=== PATIENT | male | born 1985 | race Caucasian/White ===

== ENCOUNTER 2017-05-22 22:10 | Emergency (ER) | payer OTHER ==
[2017-05-23] MEDS ORDERED: REGLAN PO ONE (00:24)
[2017-05-23] MEDS ORDERED: BENADRYL IV ONE (00:24)
[2017-05-23] MEDS ORDERED: TYLENOL PO ONE (00:25)
[2017-05-23] MEDS ORDERED: REGLAN IV ONE (00:45)
--- NOTE | 2017-05-23 00:45 | Emergency Department Report ---
ED Headache HPI - General Chief Complaint: Headache Stated Complaint: HEADACHE Time Seen by Provider: 05/23/17 00:15 - History of Present Illness Initial Comments: 32-year-old male past medical history sinus headaches presents with complaint of approximately 1 month of waxing and waning anterior frontal headache. Patient is awake alert and oriented 3 states headache is currently a 5 out of 10. Denies upper or lower extremity paresthesias. States his sinuses feel congested. Denies any significant sinus discharge, denies earache, denies sore throat. Denies photo or phonophobia. Denies neck rigidity. Denies fevers or chills. Patient fully lucid and ambulatory without assistance. Accompanied by at bedside. Denies any head trauma Timing/Duration: episodic, waxing and waning Quality: severe Head Injury Location: frontal Recent Head Trauma: no recent headache/trauma Associated Symptoms: denies symptoms Allergies/Adverse Reactions: Allergies No Known Allergies Allergy (Unverified 05/22/17 22:50) Home Medications: Ambulatory Orders Amoxicillin/K Clav Tab [Augmentin 875 mg] 1 tab PO Q12HR #14 tab 05/23/17 Fluticasone [Flonase] 1 spray NS QDAY PRN #1 bottle 05/23/17 Loratadine [Claritin] 10 mg PO DAILY PRN #30 tablet 05/23/17 Naproxen 500 mg PO BID PRN #30 tablet 05/23/17 ED Review of Systems ROS: Stated complaint: HEADACHE Other details as noted in HPI Constitutional: denies: chills, fever Eyes: denies: eye pain, eye discharge, vision change ENT: as per HPI. denies: ear pain, throat pain Respiratory: denies: cough, shortness of breath, wheezing Cardiovascular: denies: chest pain, palpitations Endocrine: no symptoms reported Gastrointestinal: denies: abdominal pain, nausea, diarrhea Genitourinary: denies: urgency, dysuria Musculoskeletal: denies: back pain, joint swelling, arthralgia Skin: denies: rash, lesions Neurological: headache. denies: weakness, paresthesias Psychiatric: denies: anxiety, depression Hematological/Lymphatic: denies: easy bleeding, easy bruising ED Past Medical Hx - Past Medical History Previous Medical History?: No - Surgical History Past Surgical History?: No - Social History Smoking Status: Current Some Day Smoker Substance Use Type: Alcohol - Medications Home Medications: Home Medications Medication Instructions Recorded Confirmed Last Taken Type Amoxicillin/K Clav Tab [Augmentin 1 tab PO Q12HR #14 tab 05/23/17 Unknown Rx 875 mg] Fluticasone [Flonase] 1 spray NS QDAY PRN #1 bottle 05/23/17 Unknown Rx Loratadine [Claritin] 10 mg PO DAILY PRN #30 tablet 05/23/17 Unknown Rx Naproxen 500 mg PO BID PRN #30 tablet 05/23/17 Unknown Rx ED Physical Exam - General Limitations: No Limitations General appearance: alert, in no apparent distress - Head Head exam: Present: atraumatic, normocephalic - Eye Eye exam: Present: normal appearance, PERRL, EOMI - ENT ENT exam: Present: mucous membranes moist - Neck Neck exam: Present: normal inspection, full ROM (neck flexion and extension intact) - Respiratory Respiratory exam: Present: normal lung sounds bilaterally. Absent: respiratory distress - Cardiovascular Cardiovascular Exam: Present: regular rate, normal rhythm. Absent: systolic murmur, diastolic murmur, rubs, gallop - GI/Abdominal GI/Abdominal exam: Present: soft, normal bowel sounds - Rectal Rectal exam: Present: deferred - Extremities Exam Extremities exam: Present: normal inspection - Back Exam Back exam: Present: normal inspection - Neurological Exam Neurological exam: Present: alert, oriented X3, CN II-XII intact, normal gait - Expanded Neurological Exam Expanded Patient oriented to: Present: person, place, time Cranial nerves: EOM's Intact: Normal, Nystagmus: Normal, Facial Sensation: Normal Cerebellar function: Finger to Nose: Normal, Heel to [place]: Normal, Romberg: Normal Sensory exam: Upper Extremity Light Touch: Normal, Lower Extremity Light Touch: Normal Motor strength exam: RUE: 5, LUE: 5, RLE: 5, LLE: 5 DTR: tricep (R): 3+, tricep (L): 3+, knee (R): 3+, knee (L): 3+ Best Eye Response ([place]): (4) open spontaneously Best Motor Response (David): (6) obeys commands Best Verbal Response (David): (5) oriented David Total: 15 - Psychiatric Psychiatric exam: Present: normal affect, normal mood - Skin Skin exam: Present: warm, dry, intact, normal color. Absent: rash ED Course Vital Signs 05/22/17 22:47 Temperature 98.4 F Pulse Rate 72 Respiratory 18 Rate Blood Pressure 157/95 O2 Sat by Pulse 98 Oximetry ED Medical Decision Making - Medical Decision Making A/P: Sinus-related migraine 1-significant relief with Tylenol and Reglan. Patient asymptomatic before discharge 2-CT shows sinus inflammation 3-naproxen, Flonase, antihistamines, course of Augmentin 4- follow-up with primary care and ENT Critical care attestation.: If time is entered above; I have spent that time in minutes in the direct care of this critically ill patient, excluding procedure time. ED Disposition Clinical Impression: Sinus headache Headache Qualifiers: Headache type: other headache syndrome Qualified Code(s): G44.89 - Other headache syndrome Disposition: TO HOME OR SELFCARE Is pt being admited?: No Does the pt Need Aspirin: No Condition: Stable Instructions: Sinusitis (ED), Acute Headache (ED) Prescriptions: Amoxicillin/K Clav Tab [Augmentin 875 mg] 1 tab PO Q12HR #14 tab Fluticasone [Flonase] 1 spray NS QDAY PRN #1 bottle PRN Reason: Congestion Loratadine [Claritin] 10 mg PO DAILY PRN #30 tablet PRN Reason: Nasal Congestion Naproxen 500 mg PO BID PRN #30 tablet PRN Reason: Pain Referrals: [facility] [Outside] - 3-5 Days [facility] [Outside] - 3-5 Days ROLANDO NAVA MD [Staff Physician] - 3-5 Days [facility] [Provider Group] - 3-5 Days [facility] [Provider Group] - 3-5 Days Forms: Accompanied Note, Work/School Release Form(ED) Time of Disposition: 01:42 Print Language: LITHUANIAN
[2017-05-23] MEDS ORDERED: REGLAN ONE (00:47)
--- NOTE | 2017-05-23 01:11 | Cat Scan Report ---
FINAL REPORT EXAM: CT HEAD/BRAIN WO CON HISTORY: c/o worsening frontal headache COMPARISON: CT of the head from 2009. TECHNIQUE: Axial images obtained skull base through vertex. FINDINGS: No acute intracranial hemorrhage, midline shift or pathologic extra axial fluid collection. Ventricles and cisterns are normal in size and configuration for the patient's age. Garcia-white differentiation preserved. Calvarium grossly intact. Visualized orbits are grossly unremarkable. Mild to moderate mucosal thickening the visualized paranasal sinuses. Mastoid air cells are clear. IMPRESSION: No grossly acute intracranial abnormality.
[2017-05-23 03:21] VITALS: BP 129/83
== END 2017-05-23 01:50 | disposition home or self-care (01) ==
LOC: ED 22:10
DX: G44.89 Other headache syndrome (principal); F17.200 Nicotine dependence, unspecified, uncomplicated
CPT/HCPCS: 70450; 96374; 96375; 99283; J1200; J2765